=== PATIENT | female | born 1970 | race Caucasian/White ===

== ENCOUNTER → 2016-10-18 | Outpatient (CLI) | payer OTHER ==
[2016-10-19 07:54] LABS: Levetiracetam (Keppra) 19.3 ug/mL (3.0-60.0)
== END | disposition home or self-care (01) ==
LOC: LABWHC1 09:47
PROVIDERS: ATTEND Psychiatry & Neurology Pain Medicine
DX: G40.909 Epilepsy, unspecified, not intractable, without status epilepticus (principal)
CPT/HCPCS: 36415; 80177; 80201

== ENCOUNTER 2016-12-16 15:55 | Emergency (ER) | payer OTHER ==
[2016-12-16 16:01] VITALS: BP 129/84; PULSE 68; RESP 18; TEMP 97.3
--- NOTE | 2016-12-16 16:27 | ED ---
Recheck HPI - General Chief Complaint: Recheck/Abnormal Lab/Rx Stated Complaint: blood clot in leg-sent by Time Seen by Provider: 12/16/16 16:13 Source: patient, RN notes reviewed, old records reviewed Mode of arrival: wheelchair Limitations: no limitations - History of Present Illness Initial Comments: Patient is a 46-year-old female with chief complaint of left upper leg pain for one week. Patient was seen by her primary care doctor who ordered a Doppler ultrasound. There is evidence of a DVT in the.. Patient's primary care provider is trying to get a hold of patient's neurosurgeon. Patient has a history of basilar aneurysm measuring about 5 mm. Patient reports that they've been monitoring this and she supposed to see a neurosurgeon [facility] however has not made an appointment to do so. Patient states that she does have chronic headaches. No new changes today. Patient states that she was given 1 dose of Xaralto. Patient denies any recent fever, chills, shortness of breath, chest pain, back pain, abdominal pain, nausea vomiting, numbness or tingling, dysuria or hematuria, constipation or diarrhea, headaches or visual changes, or any other current symptoms. - Related Data Home Medications Medication Instructions Recorded Confirmed ARIPiprazole [Abilify] 5 mg PO DAILY 07/27/14 12/16/16 Escitalopram [Lexapro] 20 mg PO DAILY 07/27/14 12/16/16 Propranolol [Inderal] 40 mg PO BID 07/27/14 12/16/16 levETIRAcetam [Keppra] 1,500 mg PO BID 07/27/14 12/16/16 Albuterol Inhaler [Ventolin 2 puff INHALATION RT-Q6H PRN 08/11/14 12/16/16 Inhaler] Topiramate [Topamax] 50 mg PO BID 12/16/16 12/16/16 Topiramate [Topamax] 100 mg PO BID 12/16/16 12/16/16 Previous Rx's Medication Instructions Recorded Rivaroxaban [Xarelto] 15 mg PO BID 21 Days 12/16/16 Allergies Allergy/AdvReac Type Severity Reaction Status Date / Time No Known Allergies Allergy Verified 12/16/16 16:41 Review of Systems ROS Statement: Those systems with pertinent positive or pertinent negative responses have been documented in the HPI. ROS Other: All systems not noted in ROS Statement are negative. Past Medical History Past Medical History: Deep Vein Thrombosis (DVT), GERD/Reflux, Musculoskeletal Disorder, Neurologic Disorder, Seizure Disorder Additional Past Medical History / Comment(s): BRAIN ANEURYSM - HAS CONSTANT HEADACHE- NEVER REALLY GOES AWAY. HEART MURMUR. SANJAY HIP PAIN- WAS IN ER FOR THIS- HARD TO WALK FAR. NUMBNESS & TINGLING SANJAY. FEET-. CHRONIC ABDOMINAL PAIN-WORSE LT SIDE UNDER RIB AREA-. SEIZURE DISORDER-GRAN MAL & PETITE MAL- NONE IN OVER A MONTH-. HX H-PYLORI EARLY 2013-. ANEMIA. HARD TIME GETTING URINE STARTED WHEN SHE NEEDS TO VOID History of Any Multi-Drug Resistant Organisms: None Reported Past Surgical History: Appendectomy, Section, Cholecystectomy, Tonsillectomy Past Anesthesia/Blood Transfusion Reactions: No Reported Reaction Past Psychological History: Anxiety Smoking Status: Current every day smoker Past Alcohol Use History: Occasional Past Drug Use History: None Reported General Exam - General Exam Comments Initial Comments: Well-appearing 46-year-old female. No distress. Limitations: no limitations General appearance: alert, in no apparent distress Head exam: Present: atraumatic, normocephalic, normal inspection Eye exam: Present: normal appearance, PERRL, EOMI. Absent: scleral icterus, conjunctival injection, periorbital swelling ENT exam: Present: normal exam, mucous membranes moist Neck exam: Present: normal inspection. Absent: tenderness, meningismus, lymphadenopathy Respiratory exam: Present: normal lung sounds bilaterally. Absent: respiratory distress, wheezes, rales, rhonchi, stridor Cardiovascular Exam: Present: regular rate, normal rhythm, normal heart sounds. Absent: systolic murmur, diastolic murmur, rubs, gallop, clicks GI/Abdominal exam: Present: soft, normal bowel sounds. Absent: distended, tenderness, guarding, rebound, rigid Extremities exam: Present: normal inspection, full ROM, normal capillary refill. Absent: tenderness, pedal edema, joint swelling, calf tenderness Back exam: Present: normal inspection Neurological exam: Present: alert, oriented X3, CN II-XII intact Psychiatric exam: Present: normal affect, normal mood Skin exam: Present: warm, dry, intact, normal color. Absent: rash Course Vital Signs 12/16/16 15:59 Temperature 97.3 F L Pulse Rate 68 Respiratory 18 Rate Blood Pressure 129/84 O2 Sat by Pulse 99 Oximetry Medical Decision Making - Medical Decision Making Discussed case with neurosurgery resident at [facility], he stated there is no contraindication for any anticoagulation if it is stable aneurysm. He states whatever anticoagulant patient feels appropriate is safe to use. Patient PCP, Marko Magallon, called informed of results, he agrees we can keep patient on xarelto, he plans to see her on monday and eventually switch to coumadin. Patient informed of results, and agrees. Patient has been advised to follow up with PCP. Return parameters discussed. - Radiology Data Radiology results: report reviewed Findings of brain MRI on 06/28/2016 show stable fusiform aneurysm the basilar tip at 6.2 mm. This is compared to 07/25/2012 exam. Redemonstrated fusiform aneurysm of the basilar tip measuring 6.2 x 5.0 mm on the left rotational reconstruction measured on prior exam and this is not significantly changed. Anterior and posterior circulations are patent without significant stenosis, arterial occlusion or other aneurysm change. Disposition Clinical Impression: Left leg DVT Disposition: HOME SELF-CARE Condition: Good Instructions: Deep Venous Thrombosis (ED) Additional Instructions: Follow-up with primary care provider on Monday. Return to the emergency department if any alarming signs or symptoms occur including altered mental status. Prescriptions: Rivaroxaban [Xarelto] 15 mg PO BID 21 Days Referrals: Krista Alba DO [Primary Care Provider] - 1-2 days Time of Disposition: 17:11
== END 2016-12-16 17:41 | disposition home or self-care (01) ==
LOC: EC 15:55
DX: I82.402 Acute embolism and thrombosis of unspecified deep veins of left lower extremity (principal); G40.909 Epilepsy, unspecified, not intractable, without status epilepticus; F41.9 Anxiety disorder, unspecified; F17.200 Nicotine dependence, unspecified, uncomplicated; Z79.899 Other long term (current) drug therapy
CPT/HCPCS: 99283

== ENCOUNTER → 2016-12-16 | Outpatient (CLI) | payer OTHER ==
--- NOTE | 2016-12-16 14:11 | US ---
EXAMINATION TYPE: US venous doppler duplex LE LT DATE OF EXAM: 12/16/2016 1:53 PM COMPARISON: NONE CLINICAL HISTORY: 46-year-old female M79.662 Leg leg pain/R22.42 swelling. Patient states left leg pa in SIDE PERFORMED: Left TECHNIQUE: The lower extremity deep venous system is examined utilizing real time linear array sonog bert with graded compression, doppler sonography and color-flow sonography. FINDINGS: VESSELS IMAGED: External Iliac Vein (EIV) Common Femoral Vein Deep Femoral Vein Greater Saphenous Vein * Femoral Vein Popliteal Vein Small Saphenous Vein * Proximal Calf Veins (* superficial vessels) Left Leg: +DVT within upper popliteal vein Radiology Assistant called results to Marko at the doctor's office at time of exam IMPRESSION: Exam positive for DVT within the upper left popliteal vein.
== END | disposition home or self-care (01) ==
LOC: RADUSWWP 13:22
PROVIDERS: ATTEND Family Medicine
DX: I82.432 Acute embolism and thrombosis of left popliteal vein (principal)

== ENCOUNTER 2016-12-24 17:09 | Observation (INO) | payer OTHER ==
[2016-12-24] MEDS ORDERED: SODIUM CHLORIDE 0.9% 500 ML IV STA (17:51)
--- NOTE | 2016-12-24 18:06 | ED ---
Abdominal Pain HPI - General Chief Complaint: Abdominal Pain Stated Complaint: BLOODY STOOL, CURRENTLY TAKING BLOOD THINNERS Time Seen by Provider: 12/24/16 17:46 Source: patient, RN notes reviewed Mode of arrival: ambulatory Limitations: no limitations - History of Present Illness Initial Comments: 46-year-old female presents to the emergency Department chief complaint of GI bleed. The patient states that she was started on Xarelto 1 week ago for a DVT. Patient states that then today she had blood mixed with brown stool. Patient states she does feel some weakness. Patient states that with a moderate amount of blood. Patient states she's only passed 2 bloody stools. Patient denies any lightheadedness or dizziness with this. Patient states she has generalized abdominal cramping but no significant complaints. Patient states she was concerned due to the blood in the stool so she thought that she should be evaluated.Patient denies any recent fever, chills, shortness of breath , chest pain, back pain, nausea vomiting, numbness or tingling, dysuria or hematuria, constipation or diarrhea, headaches or visual changes, or any other current symptoms. - Related Data Home Medications Medication Instructions Recorded Confirmed ARIPiprazole [Abilify] 5 mg PO DAILY 07/27/14 12/24/16 Escitalopram [Lexapro] 20 mg PO DAILY 07/27/14 12/24/16 Propranolol [Inderal] 40 mg PO BID 07/27/14 12/24/16 levETIRAcetam [Keppra] 1,500 mg PO BID 07/27/14 12/24/16 Albuterol Inhaler [Ventolin 2 puff INHALATION RT-Q6H PRN 08/11/14 12/24/16 Inhaler] Topiramate [Topamax] 50 mg PO BID 12/16/16 12/24/16 Topiramate [Topamax] 100 mg PO BID 12/16/16 12/24/16 Baclofen [Lioresal] 20 mg PO BID 12/24/16 12/24/16 predniSONE See Taper PO DAILY 12/24/16 12/24/16 Previous Rx's Medication Instructions Recorded Rivaroxaban [Xarelto] 15 mg PO BID 21 Days 12/16/16 Allergies Allergy/AdvReac Type Severity Reaction Status Date / Time No Known Allergies Allergy Verified 12/24/16 17:45 Review of Systems ROS Statement: Those systems with pertinent positive or pertinent negative responses have been documented in the HPI. ROS Other: All systems not noted in ROS Statement are negative. Past Medical History Past Medical History: Deep Vein Thrombosis (DVT), GERD/Reflux, Musculoskeletal Disorder, Neurologic Disorder, Seizure Disorder Additional Past Medical History / Comment(s): BRAIN ANEURYSM - HAS CONSTANT HEADACHE- NEVER REALLY GOES AWAY. HEART MURMUR. SANJAY HIP PAIN- WAS IN ER FOR THIS- HARD TO WALK FAR. NUMBNESS & TINGLING SANJAY. FEET-. CHRONIC ABDOMINAL PAIN-WORSE LT SIDE UNDER RIB AREA-. SEIZURE DISORDER-GRAN MAL & PETITE MAL- NONE IN OVER A MONTH-. HX H-PYLORI EARLY 2013-. ANEMIA. HARD TIME GETTING URINE STARTED WHEN SHE NEEDS TO VOID History of Any Multi-Drug Resistant Organisms: None Reported Past Surgical History: Appendectomy, Section, Cholecystectomy, Tonsillectomy Past Anesthesia/Blood Transfusion Reactions: No Reported Reaction Past Psychological History: Anxiety Smoking Status: Current every day smoker Past Alcohol Use History: Occasional Past Drug Use History: None Reported General Exam - General Exam Comments Initial Comments: General: The patient is awake and alert, in no distress, and does not appear acutely ill. Eye: Pupils are equal, round and reactive to light, extra-ocular movements are intact; there is normal conjunctiva bilaterally. No signs of icterus. Ears, nose, mouth and throat: There are moist mucous membranes. Neck: The neck is supple, there is no tenderness. Cardiovascular: There is a regular rate and rhythm. No murmur, rub or gallop is appreciated. Respiratory: Lungs are clear to auscultation, respirations are non-labored, breath sounds are equal. No wheezes, stridor, rales, or rhonchi. Gastrointestinal: Soft, non-distended, non-tender abdomen without masses or organomegaly noted. There is no rebound or guarding present. No CVA tenderness. Bowel sounds are unremarkable. Back: There is no tenderness to palpation in the midline. There is no obvious deformity. No rashes noted. Musculoskeletal: Normal ROM, no tenderness, There is no pedal edema. There is no calf tenderness or swelling. Sensation intact. Pulses equal bilaterally 2+. Neurological: CN II-XII intact, There are no obvious motor or sensory deficits. Coordination appears grossly intact. Speech is normal. Skin: Skin is warm and dry and no rashes or lesions are noted. Psychiatric: Cooperative, appropriate mood & affect, normal judgment. Limitations: no limitations Rectal exam: Present: normal inspection, normal rectal tone Course Vital Signs 12/24/16 17:34 Temperature 98.2 F Pulse Rate 78 Respiratory 20 Rate Blood Pressure 131/80 O2 Sat by Pulse 98 Oximetry Medical Decision Making - Medical Decision Making 46-year-old female presents emergency Department with a chief complaint of blood per rectum. Vital signs and hemoglobin are stable however due to the fact the patient is uncertain also we will admit for observation overnight to further evaluate and watch the patient. This was discussed with the patient and she is in agreement with the plan. All questions have been answered. We will hold this this time due to bleeding. - Lab Data Result diagrams: 12/24/16 18:15 12/24/16 18:15 Lab Results 12/24/16 12/24/16 12/24/16 Range/Units 18:15 18:15 18:15 WBC 12.1 H (3.8-10.6) k/uL RBC 4.59 (3.80-5.40) m/uL Hgb 14.9 (11.4-16.0) gm/dL Hct 44.5 (34.0-46.0) % MCV 97.0 (80.0-100.0) fL MCH 32.6 (25.0-35.0) pg MCHC 33.6 (31.0-37.0) g/dL RDW 13.4 (11.5-15.5) % Plt Count 250 (150-450) k/uL Neutrophils % 74 % Lymphocytes % 20 % Monocytes % 4 % Eosinophils % 0 % Basophils % 1 % Neutrophils # 8.9 H (1.3-7.7) k/uL Lymphocytes # 2.4 (1.0-4.8) k/uL Monocytes # 0.5 (0-1.0) k/uL Eosinophils # 0.1 (0-0.7) k/uL Basophils # 0.1 (0-0.2) k/uL PT (9.0-12.0) sec INR (<1.1) APTT (22.0-30.0) sec Sodium 140 (137-145) mmol/L Potassium 4.3 (3.5-5.1) mmol/L Chloride 111 H (98-107) mmol/L Carbon Dioxide 22 (22-30) mmol/L Anion Gap 7 mmol/L BUN 11 (7-17) mg/dL Creatinine 0.85 (0.52-1.04) mg/dL Est GFR (MDRD) Af Amer >60 (>60 ml/min/1.73 sqM) Est GFR (MDRD) Non-Af >60 (>60 ml/min/1.73 sqM) Glucose 97 (74-99) mg/dL Calcium 9.2 (8.4-10.2) mg/dL Total Bilirubin 0.4 (0.2-1.3) mg/dL AST 18 (14-36) U/L ALT 25 (9-52) U/L Alkaline Phosphatase 67 (38-126) U/L Total Creatine Kinase 41 (30-135) U/L CK-MB (CK-2) 0.3 (0.0-2.4) ng/mL CK-MB (CK-2) Rel Index 0.7 Troponin I <0.012 (0.000-0.034) ng/mL Total Protein 7.2 (6.3-8.2) g/dL Albumin 4.1 (3.5-5.0) g/dL Stool Occult Blood (Negative) 12/24/16 12/24/16 Range/Units 18:15 18:15 WBC (3.8-10.6) k/uL RBC (3.80-5.40) m/uL Hgb (11.4-16.0) gm/dL Hct (34.0-46.0) % MCV (80.0-100.0) fL MCH (25.0-35.0) pg MCHC (31.0-37.0) g/dL RDW (11.5-15.5) % Plt Count (150-450) k/uL Neutrophils % % Lymphocytes % % Monocytes % % Eosinophils % % Basophils % % Neutrophils # (1.3-7.7) k/uL Lymphocytes # (1.0-4.8) k/uL Monocytes # (0-1.0) k/uL Eosinophils # (0-0.7) k/uL Basophils # (0-0.2) k/uL PT 10.6 (9.0-12.0) sec INR 1.1 (<1.1) APTT 25.7 (22.0-30.0) sec Sodium (137-145) mmol/L Potassium (3.5-5.1) mmol/L Chloride (98-107) mmol/L Carbon Dioxide (22-30) mmol/L Anion Gap mmol/L BUN (7-17) mg/dL Creatinine (0.52-1.04) mg/dL Est GFR (MDRD) Af Amer (>60 ml/min/1.73 sqM) Est GFR (MDRD) Non-Af (>60 ml/min/1.73 sqM) Glucose (74-99) mg/dL Calcium (8.4-10.2) mg/dL Total Bilirubin (0.2-1.3) mg/dL AST (14-36) U/L ALT (9-52) U/L Alkaline Phosphatase (38-126) U/L Total Creatine Kinase (30-135) U/L CK-MB (CK-2) (0.0-2.4) ng/mL CK-MB (CK-2) Rel Index Troponin I (0.000-0.034) ng/mL Total Protein (6.3-8.2) g/dL Albumin (3.5-5.0) g/dL Stool Occult Blood Positive H (Negative) - Radiology Data Radiology results: report reviewed, image reviewed Disposition Clinical Impression: GI bleed Disposition: ADMITTED IP TO THIS [facility] Condition: Stable Time of Disposition: 19:45 Decision Date: 12/24/16 Decision Time: 19:46
[2016-12-24 18:23] LABS: Basophils # (A) 0.1 k/uL (0-0.2); Basophils % (A) 1 %; CH 32.4; CHCM 33.7; Eosinophils # (A) 0.1 k/uL (0-0.7); Eosinophils % (A) 0 %; HCT 44.5 % (34.0-46.0); HDW 2.67; HGB 14.9 gm/dL (11.4-16.0); Luc # (Auto) 0.13; Luc % (Auto) 1; Lymphocytes # (A) 2.4 k/uL (1.0-4.8); Lymphocytes % (A) 20 %; MCH 32.6 pg (25.0-35.0); MCHC 33.6 g/dL (31.0-37.0); Mean Platelet Volume 7.3; Monocytes # (A) 0.5 k/uL (0-1.0); Monocytes % (A) 4 %; Neutrophils # (A) 8.9 k/uL (1.3-7.7); Neutrophils % (A) 74 %; RBC 4.59 m/uL (3.80-5.40); RDW 13.4 % (11.5-15.5); WBC 12.1 k/uL (3.8-10.6); WBC (Perox) 11.96
[2016-12-24 18:36] LABS: ALT 25 U/L (9-52); AST 18 U/L (14-36); Alkaline Phosphatase 67 U/L (38-126); Anion Gap 7 mmol/L; Blood Urea Nitrogen 11 mg/dL (7-17); Calcium 9.2 mg/dL (8.4-10.2); Carbon Dioxide 22 mmol/L (22-30); Chloride 111 mmol/L (98-107); Glucose 97 mg/dL (74-99); Non-African American GFR(MDRD) >60 (>60 ml/min/1.73 sqM); Potassium 4.3 mmol/L (3.5-5.1); Sodium 140 mmol/L (137-145); Total Bilirubin 0.4 mg/dL (0.2-1.3); Total Protein 7.2 g/dL (6.3-8.2)
[2016-12-24 18:44] LABS: Creatine Kinase 41 U/L (30-135)
[2016-12-24 18:48] LABS: INR 1.1 (<1.1); Partial Thromboplastin Time 25.7 sec (22.0-30.0); Prothrombin Time 10.6 sec (9.0-12.0)
[2016-12-24 18:56] LABS: Creatine Kinase MB 0.3 ng/mL (0.0-2.4); Troponin I <0.012 ng/mL (0.000-0.034)
--- NOTE | 2016-12-24 19:05 | XR ---
EXAMINATION TYPE: XR abdomen 2V DATE OF EXAM: 12/24/2016 7:00 PM CLINICAL HISTORY: Blood in stool per patient. Pain per order. TECHNIQUE: Supine and upright views of the abdomen are obtained. COMPARISON: None. FINDINGS: Scattered gas is seen in non-distended small bowel loops. Gas and fecal material is seen in non-distended colon. Surgical sutures at base of cecum are seen in the right lower quadrant. There are surgical clips overlying the pelvis. Scattered pelvic phleboliths are seen. Cholecystectomy clip s are noted. No pneumoperitoneum is identified. Lung bases are clear. Visualized osseous structures a re intact. IMPRESSION: Overall nonobstructive bowel gas pattern.
[2016-12-24] MEDS ORDERED: ACETAMINOPHEN TAB 325 MG TAB PO PRN (19:46)
[2016-12-24] MEDS ORDERED: NALOXONE 0.4 MG/ML 1 ML VIAL IV PRN (19:46)
[2016-12-24] MEDS ORDERED: ONDANSETRON 4 MG/2 ML VIAL IVP PRN (19:46)
[2016-12-24] MEDS ORDERED: ALBUTEROL NEBULIZED 2.5 MG/3 ML INHALATION PRN (19:47)
[2016-12-24] MEDS: SODIUM CHLORIDE 0.9% 1,000 ML IV SCH (19:55)
[2016-12-24 22:16] VITALS: BMI 34.2
[2016-12-24] MEDS: TOPIRAMATE 100 MG TAB PO SCH (22:22)
[2016-12-24] MEDS: TOPIRAMATE 25 MG TAB PO SCH (22:23)
[2016-12-24] MEDS: levETIRAcetam 500 MG TAB PO SCH (22:23)
[2016-12-24] MEDS: PROPRANOLOL 40 MG TAB PO SCH (22:23)
[2016-12-24] MEDS: BACLOFEN 10 MG TAB PO SCH (22:23)
[2016-12-25 00:59] VITALS: RESP 16
[2016-12-25 06:20] LABS: Glucose,Whole Blood 86 mg/dL (75-99)
[2016-12-25 07:55] LABS: Basophils # (A) 0.1 k/uL (0-0.2); Basophils % (A) 1 %; CH 32.1; CHCM 33.3; Eosinophils % (A) 1 %; HCT 40.5 % (34.0-46.0); HDW 2.67; HGB 13.1 gm/dL (11.4-16.0); Luc # (Auto) 0.14; Luc % (Auto) 2; Lymphocytes # (A) 3.4 k/uL (1.0-4.8); Lymphocytes % (A) 37 %; MCH 31.4 pg (25.0-35.0); MCHC 32.4 g/dL (31.0-37.0); Mean Platelet Volume 7.2; Monocytes # (A) 0.4 k/uL (0-1.0); Monocytes % (A) 5 %; Neutrophils # (A) 5.2 k/uL (1.3-7.7); Neutrophils % (A) 56 %; RBC 4.17 m/uL (3.80-5.40); RDW 13.5 % (11.5-15.5); WBC 9.2 k/uL (3.8-10.6); WBC (Perox) 9.88
[2016-12-25 08:19] LABS: Anion Gap 9 mmol/L; Blood Urea Nitrogen 10 mg/dL (7-17); Calcium 8.5 mg/dL (8.4-10.2); Carbon Dioxide 19 mmol/L (22-30); Chloride 114 mmol/L (98-107); Glucose 85 mg/dL (74-99); Non-African American GFR(MDRD) >60 (>60 ml/min/1.73 sqM); Potassium 3.8 mmol/L (3.5-5.1); Sodium 142 mmol/L (137-145)
[2016-12-25] MEDS: SODIUM CHLORIDE 0.9% 1,000 ML IV SCH ×4 (09:02→23:53)
[2016-12-25] MEDS: ESCITALOPRAM 20 MG TAB PO SCH (09:03)
[2016-12-25] MEDS: levETIRAcetam 500 MG TAB PO SCH ×2 (09:03→20:58)
[2016-12-25] MEDS: BACLOFEN 10 MG TAB PO SCH ×2 (09:03→20:58)
[2016-12-25] MEDS: TOPIRAMATE 25 MG TAB PO SCH ×2 (09:03→20:58)
[2016-12-25] MEDS: PROPRANOLOL 40 MG TAB PO SCH ×2 (09:03→20:58)
[2016-12-25] MEDS: TOPIRAMATE 100 MG TAB PO SCH ×2 (09:04→20:58)
[2016-12-25] MEDS: ARIPiprazole 5 MG TAB PO SCH (11:31)
[2016-12-25 11:37] LABS: Glucose,Whole Blood 87 mg/dL (75-99)
--- NOTE | 2016-12-25 13:39 | P.GSCN ---
History of Present Illness Consult date: 12/25/16 Reason for Consult: GI bleed History of present illness: This a 46-year-old female who was recently diagnosed with a DVT. Patient started is relative. Patient states that she noticed some blood when she wiped herself after having a bowel movement. She has a known history of hemorrhoids. She's had no further bleeding while in the hospital. Review of Systems - Constitutional Reports as per HPI Past Medical History Past Medical History: Deep Vein Thrombosis (DVT), GERD/Reflux, Neurologic Disorder, Seizure Disorder Additional Past Medical History / Comment(s): BRAIN ANEURYSM - HAS CONSTANT HEADACHE- NEVER REALLY GOES AWAY. HEART MURMUR. SANJAY HIP PAIN- WAS IN ER FOR THIS- HARD TO WALK FAR. NUMBNESS & TINGLING SANJAY. FEET-. CHRONIC ABDOMINAL PAIN-WORSE LT SIDE UNDER RIB AREA-. SEIZURE DISORDER-GRAN MAL & PETITE MAL- NONE IN OVER A MONTH-. HX H-PYLORI EARLY 2013-. ANEMIA. HARD TIME GETTING URINE STARTED WHEN SHE NEEDS TO VOID History of Any Multi-Drug Resistant Organisms: None Reported Past Surgical History: Appendectomy, Section, Cholecystectomy, Tonsillectomy Past Anesthesia/Blood Transfusion Reactions: No Reported Reaction Past Psychological History: Anxiety Smoking Status: Current some day smoker Past Alcohol Use History: Occasional Past Drug Use History: None Reported Medications and Allergies Home Medications Medication Instructions Recorded Confirmed Type ARIPiprazole [Abilify] 5 mg PO DAILY 07/27/14 12/24/16 History Escitalopram [Lexapro] 20 mg PO DAILY 07/27/14 12/24/16 History Propranolol [Inderal] 40 mg PO BID 07/27/14 12/24/16 History levETIRAcetam [Keppra] 1,500 mg PO BID 07/27/14 12/24/16 History Albuterol Inhaler [Ventolin 2 puff INHALATION RT-Q6H PRN 08/11/14 12/24/16 History Inhaler] Topiramate [Topamax] 50 mg PO BID 12/16/16 12/24/16 History Topiramate [Topamax] 100 mg PO BID 12/16/16 12/24/16 History Baclofen [Lioresal] 20 mg PO BID 12/24/16 12/24/16 History predniSONE See Taper PO DAILY 12/24/16 12/24/16 History Allergies Allergy/AdvReac Type Severity Reaction Status Date / Time No Known Allergies Allergy Verified 12/24/16 17:45 Surgical - Exam Vital Signs Temp Pulse Resp BP Pulse Ox 98.2 F 78 20 131/80 98 12/24/16 17:34 12/24/16 17:34 12/24/16 17:34 12/24/16 17:34 12/24/16 17:34 - General well developed, no distress - Eyes PERRL - ENT normal pinna - Neck no masses - Respiratory normal expansion - Cardiovascular Rhythm: regular - Abdomen Abdomen: soft, non tender Results - Labs 12/25/16 07:24 12/25/16 07:24 Abnormal Lab Results - Last 24 Hours (Table) 12/25/16 Range/Units 07:24 Chloride 114 H (98-107) mmol/L Carbon Dioxide 19 L (22-30) mmol/L Diabetes panel 12/25/16 Range/Units 07:24 Sodium 142 (137-145) mmol/L Potassium 3.8 (3.5-5.1) mmol/L Chloride 114 H (98-107) mmol/L Carbon Dioxide 19 L (22-30) mmol/L BUN 10 (7-17) mg/dL Creatinine 0.83 (0.52-1.04) mg/dL Glucose 85 (74-99) mg/dL Calcium 8.5 (8.4-10.2) mg/dL Calcium panel 12/25/16 Range/Units 07:24 Calcium 8.5 (8.4-10.2) mg/dL Pituitary panel 12/25/16 Range/Units 07:24 Sodium 142 (137-145) mmol/L Potassium 3.8 (3.5-5.1) mmol/L Chloride 114 H (98-107) mmol/L Carbon Dioxide 19 L (22-30) mmol/L BUN 10 (7-17) mg/dL Creatinine 0.83 (0.52-1.04) mg/dL Glucose 85 (74-99) mg/dL Calcium 8.5 (8.4-10.2) mg/dL Adrenal panel 12/25/16 Range/Units 07:24 Sodium 142 (137-145) mmol/L Potassium 3.8 (3.5-5.1) mmol/L Chloride 114 H (98-107) mmol/L Carbon Dioxide 19 L (22-30) mmol/L BUN 10 (7-17) mg/dL Creatinine 0.83 (0.52-1.04) mg/dL Glucose 85 (74-99) mg/dL Calcium 8.5 (8.4-10.2) mg/dL Assessment and Plan Plan: Probable lower GI bleed secondary to hemorrhoids and Cymbalta. Patient should start high-fiber diet and Colace. If she continues to have evidence of rectal bleeding we will perform colonoscopy.
--- NOTE | 2016-12-25 13:59 | P.HPIM ---
History of Present Illness H&P Date: 12/25/16 Chief Complaint: Hematochezia This is a 46-year-old female with past medical history significant for external hemorrhoid who presented to the emergency room with bright red blood per rectum. Patient said that she has been doing fairly well recently up until the last couple of days when she had bright red blood with her bowel movement. Patient said that the amount of blood was approximately a tablespoon of blood. Patient denies any significant abdominal pain. Patient said that she had another bowel movement yesterday with approximately same amount of blood. She decided to come to the emergency room for further evaluation. Review of Systems Review of system: 14 points review of systems were obtained and were negative except to what were mentioned in the HPI. Past Medical History Past Medical History: Deep Vein Thrombosis (DVT), GERD/Reflux, Neurologic Disorder, Seizure Disorder Additional Past Medical History / Comment(s): BRAIN ANEURYSM - HAS CONSTANT HEADACHE- NEVER REALLY GOES AWAY. HEART MURMUR. SANJAY HIP PAIN- WAS IN ER FOR THIS- HARD TO WALK FAR. NUMBNESS & TINGLING SANJAY. FEET-. CHRONIC ABDOMINAL PAIN-WORSE LT SIDE UNDER RIB AREA-. SEIZURE DISORDER-GRAN MAL & PETITE MAL- NONE IN OVER A MONTH-. HX H-PYLORI EARLY 2013-. ANEMIA. HARD TIME GETTING URINE STARTED WHEN SHE NEEDS TO VOID History of Any Multi-Drug Resistant Organisms: None Reported Past Surgical History: Appendectomy, Section, Cholecystectomy, Tonsillectomy Past Anesthesia/Blood Transfusion Reactions: No Reported Reaction Past Psychological History: Anxiety Smoking Status: Current some day smoker Past Alcohol Use History: Occasional Past Drug Use History: None Reported Medications and Allergies Home Medications Medication Instructions Recorded Confirmed Type ARIPiprazole [Abilify] 5 mg PO DAILY 07/27/14 12/24/16 History Escitalopram [Lexapro] 20 mg PO DAILY 07/27/14 12/24/16 History Propranolol [Inderal] 40 mg PO BID 07/27/14 12/24/16 History levETIRAcetam [Keppra] 1,500 mg PO BID 07/27/14 12/24/16 History Albuterol Inhaler [Ventolin 2 puff INHALATION RT-Q6H PRN 08/11/14 12/24/16 History Inhaler] Topiramate [Topamax] 50 mg PO BID 12/16/16 12/24/16 History Topiramate [Topamax] 100 mg PO BID 12/16/16 12/24/16 History Baclofen [Lioresal] 20 mg PO BID 12/24/16 12/24/16 History RX: predniSONE See Taper PO DAILY 12/24/16 12/24/16 History Allergies Allergy/AdvReac Type Severity Reaction Status Date / Time No Known Allergies Allergy Verified 12/24/16 17:45 Physical Exam Vitals: Vital Signs Temp Pulse Pulse Resp BP BP Pulse Ox 12/25/16 07:00 97.9 F 63 16 103/71 97 12/25/16 00:51 16 12/24/16 23:00 96 F L 63 16 124/85 100 12/24/16 20:00 97.6 F 57 L 18 131/88 97 Intake and Output 12/24/16 12/25/16 12/25/16 22:59 06:59 14:59 Intake Total 600 Balance 600 Intake: Intake, IV Titration 600 Amount Sodium Chloride 0.9% 1, 600 000 ml @ 100 mls/hr IV . Q10H [facility] Rx#:[id number] Other: Voiding Method Toilet Weight 96.162 kg General: The patient is awake and alert, in no distress, and does not appear acutely ill. Eye: extra-ocular movements are intact; there is normal conjunctiva bilaterally. . Neck: The neck is supple, there is no tenderness or JVD. Cardiovascular: Normal S1-S2, no S3-S4, no murmurs. Respiratory: Lungs clear to auscultation bilaterally with no wheezes rhonchi or rales. Gastrointestinal: Abdomen is soft, nontender, nondistended, with no organomegaly. . Musculoskeletal: Normal ROM, no tenderness, There is no pedal edema. Neurological: There are no obvious motor or sensory deficits. Speech is normal. Skin: Skin is warm and dry and no rashes or lesions are noted. Results CBC & Chem 7: 12/25/16 07:24 12/25/16 07:24 Labs: Abnormal Lab Results - Last 24 Hours (Table) 12/25/16 Range/Units 07:24 Chloride 114 H (98-107) mmol/L Carbon Dioxide 19 L (22-30) mmol/L Thrombosis Risk Factor Assmnt - Choose All That Apply Any of the Below Risk Factors Present?: Yes Each Factor Represents 1 point: Age 41-60 years Other Risk Factors: Yes (LLE blood clot) Thrombosis Risk Factor Assessment Total Risk Factor Score: 1 Thrombosis Risk Factor Assessment Level: Low Risk Assessment and Plan Plan: 1. Hematochezia/lower GI bleed most likely attributed to known history of hemorrhoids 2. Recent acute DVT of the right lower extremity on anticoagulation with Rivaroxaban 3. Major depressive disorder Today, I discussed her current clinical condition. We discussed risk and benefits of anticoagulation. Patient understand that the benefits outweigh the risks in her case. I would resume her Rivaroxaban. I will start clear liquid diet. Consult general surgery for further evaluation. Monitor for any blood in stool. Repeat lab work in the morning.
[2016-12-25 17:13] LABS: Glucose,Whole Blood 94 mg/dL (75-99)
[2016-12-25] MEDS: RIVAROXABAN 15 MG TAB PO SCH (18:06)
[2016-12-25 20:04] LABS: Glucose,Whole Blood 121 mg/dL (75-99)
[2016-12-26 07:49] LABS: Glucose,Whole Blood 105 mg/dL (75-99)
[2016-12-26 08:23] VITALS: BP 101/64; TEMP 97.4
[2016-12-26 08:51] LABS: Basophils # (A) 0.1 k/uL (0-0.2); Basophils % (A) 1 %; CH 32.7; CHCM 34.2; Eosinophils # (A) 0.1 k/uL (0-0.7); Eosinophils % (A) 1 %; HCT 44.8 % (34.0-46.0); HGB 15.1 gm/dL (11.4-16.0); Luc # (Auto) 0.09; Luc % (Auto) 1; Lymphocytes # (A) 2.7 k/uL (1.0-4.8); Lymphocytes % (A) 32 %; MCH 32.3 pg (25.0-35.0); MCHC 33.7 g/dL (31.0-37.0); Mean Platelet Volume 7.3; Monocytes # (A) 0.5 k/uL (0-1.0); Monocytes % (A) 6 %; Neutrophils # (A) 4.9 k/uL (1.3-7.7); Neutrophils % (A) 59 %; RBC 4.66 m/uL (3.80-5.40); RDW 13.3 % (11.5-15.5); WBC 8.3 k/uL (3.8-10.6); WBC (Perox) 8.47
[2016-12-26] MEDS ORDERED: DOCUSATE 100 MG CAP PO SCH (09:00)
[2016-12-26] MEDS: BACLOFEN 10 MG TAB PO SCH (10:44)
[2016-12-26] MEDS: ARIPiprazole 5 MG TAB PO SCH (10:44)
[2016-12-26] MEDS: RIVAROXABAN 15 MG TAB PO SCH (10:44)
[2016-12-26] MEDS: TOPIRAMATE 100 MG TAB PO SCH (10:45)
[2016-12-26] MEDS: TOPIRAMATE 25 MG TAB PO SCH (10:45)
[2016-12-26] MEDS: levETIRAcetam 500 MG TAB PO SCH (10:45)
[2016-12-26] MEDS: PROPRANOLOL 40 MG TAB PO SCH (10:45)
[2016-12-26] MEDS: ESCITALOPRAM 20 MG TAB PO SCH (10:45)
[2016-12-26 10:47] VITALS: PULSE 64
[2016-12-26 10:49] LABS: Anion Gap 9 mmol/L; Blood Urea Nitrogen 7 mg/dL (7-17); Calcium 8.7 mg/dL (8.4-10.2); Carbon Dioxide 17 mmol/L (22-30); Chloride 115 mmol/L (98-107); Glucose 93 mg/dL (74-99); Non-African American GFR(MDRD) >60 (>60 ml/min/1.73 sqM); Potassium 3.6 mmol/L (3.5-5.1); Sodium 141 mmol/L (137-145)
[2016-12-26 11:56] LABS: Glucose,Whole Blood 99 mg/dL (75-99)
--- NOTE | 2016-12-26 12:28 | P.DS ---
Providers Date of admission: 12/24/16 19:46 Expected date of discharge: 12/26/16 Attending physician: Marline Porter Consults: 12/25/16 12:30 Consult Physician Routine Consulting Provider: Gerson Calhoun Consult Reason/Comments: bleeding hemorrhoids Do you want consulting provider notified?: Yes Primary care physician: Krista Alba Hospital Course: Discharge diagnosis 1. Acute lower GI bleed secondary to hemorrhoids and Xarelto. Evaluated by surgical service. They recommended a high-fiber diet and Colace. Patient had no further episodes of bleeding therefore she does not require colonoscopy at this time. Hemoglobin stable. 2. Recent acute DVT of the right lower extremity on anticoagulation with Rivaroxaban 3. Major depressive disorder 4. History of seizure disorder Hospital course This is a 46-year-old female with past medical history significant for external hemorrhoid who presented to the emergency room with bright red blood per rectum. Patient said that she has been doing fairly well recently up until the last couple of days when she had bright red blood with her bowel movement. Patient said that the amount of blood was approximately a tablespoon of blood. Patient denies any significant abdominal pain. Patient said that she had another bowel movement yesterday with approximately same amount of blood. She decided to come to the emergency room for further evaluation. Initially the Xarelto was placed on hold. She was seen by surgical service. Her hemoglobin remained stable. Her rectal bleeding did stop. It is felt likely her rectal bleeding was related to the external hemorrhoids and Xarelto. Surgical service is recommending a stool softener and high-fiber diet. Patient's hemoglobin has remained stable. Hemoglobin at discharge is 15.1. Note the patient has had no further episodes of bleeding and having regular bowel movements. She's tolerated advancement of diet. And she is stable for discharge. Since her DVT is acute and just diagnosed 1 week ago benefits of anticoagulation outweigh the risks in her case. Therefore patient Xarelto was started yesterday. And she is tolerating that with no bleeding. Patient is medically stable for discharge. She has been cleared by surgical service. She'll follow-up with her PCP in 1 week. I performed an examination of the patient and discussed their management with the physician Crime Prevention Worker. I have reviewed the Physician Crime Prevention Worker's notes and agree with the documented findings and plan of care Patient Condition at Discharge: Stable Plan - Discharge Summary New Discharge Prescriptions: Docusate [Colace] 100 mg PO DAILY #30 cap Discharge Medication List ARIPiprazole [Abilify] 5 mg PO DAILY 07/27/14 [History] Escitalopram [Lexapro] 20 mg PO DAILY 07/27/14 [History] Propranolol [Inderal] 40 mg PO BID 07/27/14 [History] levETIRAcetam [Keppra] 1,500 mg PO BID 07/27/14 [History] Albuterol Inhaler [Ventolin Hfa Inhaler] 2 puff INHALATION RT-Q6H PRN 08/11/14 [ History] Rivaroxaban [Xarelto] 15 mg PO BID 21 Days 12/16/16 [Rx] Topiramate [Topamax] 50 mg PO BID 12/16/16 [History] Topiramate [Topamax] 100 mg PO BID 12/16/16 [History] Baclofen [Lioresal] 20 mg PO BID 12/24/16 [History] predniSONE See Taper PO DAILY 12/24/16 [History] Docusate [Colace] 100 mg PO DAILY #30 cap 12/26/16 [Rx] Follow up Appointment(s)/Referral(s): Krista Alba DO [Primary Care Provider] - 1 Week Activity/Diet/Wound Care/Special Instructions: Diet: High fiber Activity: as tolerated Discharge Disposition: HOME SELF-CARE
--- NOTE | 2016-12-26 14:16 | P.PN ---
Subjective Principal diagnosis: GI bleeding Patient is a 46-year-old female admitted with lower GI bleeding. Patient is seen in follow-up. No further episodes of rectal bleeding. Patient had a normal bowel movement this morning. Denies chills, fevers, nausea, vomiting, shortness of breath, chest pain, or abdominal pain. Patient is urinating without difficulty. Afebrile. Patient is tolerating a full liquid diet. Objective - Vital Signs Vital signs: Vital Signs Temp 97.4 F L 12/26/16 07:00 Pulse 64 12/26/16 10:46 Resp 16 12/26/16 07:00 BP 101/64 12/26/16 07:00 Pulse Ox 98 12/26/16 07:00 Intake & Output 12/25/16 12/26/16 12/26/16 18:59 06:59 18:59 Intake Total 700 2270 Balance 700 2270 Intake: IV 1200 Sodium Chloride 0.9% 1, 1200 000 ml @ 100 mls/hr IV . Q10H REENA Rx#:[id number] Intake, IV Titration 700 Amount Sodium Chloride 0.9% 1, 700 000 ml @ 100 mls/hr IV . Q10H REENA Rx#:[id number] Oral 1070 Other: Voiding Method Toilet Toilet Toilet # Voids 2 - Exam GENERAL: Pt awake and alert, well-appearing, well-nourished, and in no acute distress. LUNGS: Breath sounds clear to auscultation bilaterally. No wheezes, rales, or rhonchi. HEART: Heart S1, S2, no S3 or S4. Irregularly irregular. No murmurs, rubs or gallops. ABDOMEN: Soft, nontender, nondistended, normoactive bowel sounds. No guarding, no rebound. No masses or organomegaly appreciated. NEUROLOGICAL: Pt oriented x 3. - Labs CBC & Chem 7: 12/26/16 08:30 12/26/16 08:30 Labs: Abnormal Lab Results - Last 24 Hours (Table) 12/25/16 12/26/16 12/26/16 Range/Units 20:03 07:48 08:30 Chloride 115 H (98-107) mmol/L Carbon Dioxide 17 L (22-30) mmol/L POC Glucose (mg/dL) 121 H 105 H (75-99) mg/dL Assessment and Plan Plan: Impression: 1. Lower GI bleeding suspect secondary to hemorrhoids and xARELTO. No evidence of further bleeding. Hemoglobin stable. Plan: Patient has had no further evidence of rectal bleeding. Hemoglobin stable. We' ll advance diet to a cardiac diet and initiate Colace. From a surgical standpoint, patient is stable for discharge. Patient will need to start a high fiber diet. The above impression and plan have been discussed and directed by Dr. Calhoun. Francisca GARDUNO acting as scribe for Dr. Calhoun.
== END 2016-12-26 13:15 | disposition home or self-care (01) ==
LOC: EC 17:09 → 5MS5E 19:46
PROVIDERS: ADMIT Internal Medicine; ATTEND Internal Medicine
DX: K92.2 Gastrointestinal hemorrhage, unspecified (principal); T45.515A Adverse effect of anticoagulants, initial encounter; K64.4 Residual hemorrhoidal skin tags; Z86.718 Personal history of other venous thrombosis and embolism; Z79.02 Long term (current) use of antithrombotics/antiplatelets; F32.9 Major depressive disorder, single episode, unspecified; G40.909 Epilepsy, unspecified, not intractable, without status epilepticus; F41.9 Anxiety disorder, unspecified; R51 Headache; Z79.899 Other long term (current) drug therapy; Z79.52 Long term (current) use of systemic steroids; F17.200 Nicotine dependence, unspecified, uncomplicated
CPT/HCPCS: 96361 ×2; 96360; 99285; 36415; 80053; 80048 ×2; 82550; 82553; 84484; 85025 ×3; 85610; 85730; 82272; 74020; G0378 ×3

== ENCOUNTER 2017-01-25 11:18 | Day surgery (SDC) | payer OTHER ==
[2017-01-19 16:19] VITALS: BMI 34.9
[~2017-01-25 11:18] MED LIST: LACTATED RINGERS 1,000 ML IV SCH; LIDOCAINE 1% 20 ML VIAL (10MG/ML) FOR IV START INTRADERMA PRN
[2017-01-25 11:37] VITALS: PULSE 61; TEMP 97.6
[2017-01-25] MEDS ORDERED: PROPOFOL 10 MG/ML 20 ML VIAL IV ONE (12:31)
[2017-01-25] MEDS ORDERED: LIDOCAINE 1% INJ 10MG/ML (20 ML MDV) ONE (12:31)
--- NOTE | 2017-01-25 12:51 | P.GSHP ---
History of Present Illness H&P Date: 01/25/17 Chief Complaint: History of colon polyps This a 46-year-old female referred from Dr. Krista Alba. Patient presents today for colonoscopy. She's had a previous colonoscopy performed 2 years ago which showed evidence of adenomatous polyps. Patient states she also history of hemorrhoids. - Constitutional Constitutional: Reports as per HPI Past Medical History Past Medical History: Asthma, Deep Vein Thrombosis (DVT), GERD/Reflux, Hypertension, Neurologic Disorder, Seizure Disorder Additional Past Medical History / Comment(s): BRAIN ANEURYSM-HAS CONSTANT HEADACHE-NEVER REALLY GOES AWAY, hx. heart murmur,anemia, recent admission for rectal bleeding,hemorrhoids, DVT dx. 3 months ago,. SANJAY HIP PAIN- HARD TO WALK FAR. NUMBNESS & TINGLING SANJAY. FEET,. CHRONIC ABDOMINAL PAIN-WORSE LT SIDE UNDER RIB AREA, last seizure couple months ago. HX H-PYLORI EARLY 2013 History of Any Multi-Drug Resistant Organisms: None Reported Past Surgical History: Appendectomy, Section, Cholecystectomy, Tonsillectomy Past Anesthesia/Blood Transfusion Reactions: No Reported Reaction Past Psychological History: Anxiety Smoking Status: Current every day smoker Past Alcohol Use History: Occasional Additional Past Alcohol Use History / Comment(s): down to 5 cigs/day from 1ppd, trying to quit, has smoked since age of 12 Past Drug Use History: None Reported - Past Family History Mother Family Medical History: Deep Vein Thrombosis (DVT) Father Family Medical History: Cancer Medications and Allergies Home Medications Medication Instructions Recorded Confirmed Type ARIPiprazole [Abilify] 5 mg PO DAILY 07/27/14 01/25/17 History Escitalopram [Lexapro] 20 mg PO DAILY 07/27/14 01/25/17 History Propranolol [Inderal] 40 mg PO BID 07/27/14 01/25/17 History levETIRAcetam [Keppra] 1,500 mg PO BID 07/27/14 01/25/17 History Albuterol Inhaler [Ventolin Hfa 2 puff INHALATION RT-Q6H PRN 08/11/14 01/25/17 History Inhaler] Topiramate [Topamax] 150 mg PO BID 12/16/16 01/25/17 History Baclofen [Lioresal] 20 mg PO BID PRN 12/24/16 01/25/17 History Rivaroxaban [Xarelto] 20 mg PO DAILY 01/19/17 01/25/17 History Allergies Allergy/AdvReac Type Severity Reaction Status Date / Time No Known Allergies Allergy Verified 01/25/17 11:30 Surgical - Exam Vital Signs Temp Pulse BP Pulse Ox 97.6 F 61 118/85 96 01/25/17 11:35 01/25/17 11:35 01/25/17 11:35 01/25/17 11:35 - General well developed, no distress - Eyes PERRL - ENT normal pinna - Neck no masses - Respiratory normal expansion - Cardiovascular Rhythm: regular - Abdomen Abdomen: soft, non tender Assessment and Plan Plan: History of colonic polyps and hemorrhoids. We'll perform colonoscopy.
[2017-01-25] MEDS ORDERED: LACTATED RINGERS 1,000 ML IV ONE (13:01)
--- NOTE | 2017-01-25 13:05 | P.OP ---
Date of Procedure: 01/25/17 Preoperative Diagnosis: History of colonic polyps Hemorrhoids Postoperative Diagnosis: Hemorrhoids Procedure(s) Performed: Colonoscopy Implants: Anesthesia: MAC Surgeon: Gerson Calhoun Pathology: none sent Condition: stable Disposition: PACU Indications for Procedure: Operative Findings: Description of Procedure: The patient's placed on the endoscopy table in the lateral position. She received IV sedation. Digital rectal exam was performed which revealed internal and external hemorrhoids. The flexible colonoscope was then placed patient anus passed throughout the entire colon. The ileocecal valve visualized. The cecum, ascending and transverse colon appeared normal. The transverse descending and sigmoid colon appeared normal. Scope was brought back the rectum and this appeared normal. Scope was withdrawn through the anus and internal and external hemorrhoids were noted. Scope was withdrawn for patient.
[2017-01-25 13:16] VITALS: RESP 16
[2017-01-25 13:25] VITALS: BP 119/77
== END 2017-01-25 13:50 | disposition home or self-care (01) ==
LOC: ORWHC2ENDO 11:18
PROVIDERS: ATTEND Surgery
DX: K64.8 Other hemorrhoids (principal); K64.4 Residual hemorrhoidal skin tags; Z86.010 Personal history of colon polyps; J45.909 Unspecified asthma, uncomplicated; Z86.718 Personal history of other venous thrombosis and embolism; K21.9 Gastro-esophageal reflux disease without esophagitis; I10 Essential (primary) hypertension; G40.909 Epilepsy, unspecified, not intractable, without status epilepticus; I67.1 Cerebral aneurysm, nonruptured; F41.9 Anxiety disorder, unspecified; F17.210 Nicotine dependence, cigarettes, uncomplicated; Z79.01 Long term (current) use of anticoagulants; Z79.899 Other long term (current) drug therapy
CPT/HCPCS: 81025; 45378; J2001; J2704